=== PATIENT | female | born 1955 | race African-American/Black ===

== ENCOUNTER → 2016-11-14 | Outpatient (CLI) | payer BC ==
--- NOTE | ~2016-11-14 | US5 ---
[facility] A Service of [facility] & [facility] RADIOLOGY TEXT RESULTS PATIENT: CEE ARGUELLES LOCATION: [facility] : 55 UNIT #: [id number] AGE: [address]: TRACY JIMENEZ MD SEX: F ORDER DR: [id number] [facility] [address] [place], [place] [address] [id number] O MR#: [id number] Acc #: [id number] NAME: CEE ARGUELLES : 1955 SEX: F STUDY DATE/TIME: 11/14/2016 13:01 UNIT: [facility] ROOM: STUDY DESCRIPTION: US Abdominal Complete Attending Physician: Tracy Jimenez M.D. Referring Physician: Tracy Jimenez M.D. Ordering Physician: Tracy Jimenez M.D. Primary Care Physician: Tracy Jimenez M.D. MEDICAL IMAGING REPORT This report is preliminary unless electronic signature is present EXAM Abdominal ultrasound INDICATIONS Right upper quadrant pain. This occurs postprandial and has been present for 4 days. TECHNIQUE Saldana-scale, color Doppler and spectral Doppler waveform analysis was performed through the patient's abdomen. FINDINGS There is limited visualization of the pancreas. No obvious abnormality is seen. Spleen and left kidney are within normal limits. No solid or cystic renal masses seen and there is no hydronephrosis. Abdominal aorta measures within normal size limits. Car Parker documents fatty infiltration of the liver, however this is not convincingly demonstrated on the submitted images. No obvious masses are seen and there is no intra or extrahepatic biliary dilatation. Gallbladder does not contain any stones or sludge and there is no gallbladder wall thickening or pericholecystic fluid. Right kidney is normal in appearance with no solid or cystic renal masses seen and no hydronephrosis identified. IMPRESSION Car Parker records possible fatty infiltration of the liver. This is not convincingly demonstrated on the submitted images. Otherwise unremarkable exam. Dictated by... Sharon Caicedo M.D. THIS IS AN ELECTRONICALLY VERIFIED REPORT Sharon Caicedo M.D. at 11/16/2016 11:21 AM [facility] A Service of [facility] RADIOLOGY TEXT RESULTS PATIENT: CEE ARGUELLES LOCATION: [facility] #: [id number] : 55 UNIT #: [id number] AGE: [address]: TRACY JIMENEZ MD SEX: F ORDER DR: DAKOTA/jose enrique TD: 11/14/2016 21:23 JOB #: [id number] MEDICAL IMAGING REPORT Page 1 of 1 COPY
== END | disposition home or self-care (01) ==
LOC: CGUS 12:13
DX: R10.11 Right upper quadrant pain (principal)
CPT/HCPCS: 76700